=== PATIENT | female | born 2005 | race Caucasian/White ===

== ENCOUNTER 2023-11-25 08:37 | Emergency (ER) | payer OTHER ==
[~2023-11-25] VITALS: Ht 160 cm; Wt 65.8 kg
[2023-11-25] MEDS ORDERED: CEPH-570 PO (08:57)
[2023-11-25 09:02] VITALS: BP 119/66; TEMP 98.9; O2SAT 100
== END 2023-11-25 09:02 | disposition home or self-care (01) ==
LOC: ER 08:54
DX: N61.0 Mastitis without abscess (principal)

== ENCOUNTER 2024-01-19 16:25 | Emergency (ER) | payer OTHER ==
[~2024-01-19] VITALS: Ht 160 cm; Wt 82.1 kg
[~2024-01-19 16:25] MED LIST: CEPH-570 PO
[2024-01-19] MEDS ORDERED: ACETAMINOPHEN 325 MG TABLET ONE (18:30)
[2024-01-19] MEDS: ACETAMINOPHEN 325 MG TABLET PO ONE (18:35)
[2024-01-19 18:38] LABS: PREGNANCY TEST URINE QUAL NEGATIVE (NEGATIVE)
[2024-01-19 20:46] VITALS: BP 148/76; TEMP 98.5; O2SAT 100
== END 2024-01-19 20:46 | disposition home or self-care (01) ==
LOC: ER 16:27
DX: M54.2 Cervicalgia (principal); M25.552 Pain in left hip; M25.562 Pain in left knee; R51.9 Headache, unspecified; N61.0 Mastitis without abscess; M54.9 Dorsalgia, unspecified; M25.572 Pain in left ankle and joints of left foot; M25.512 Pain in left shoulder; R10.2 Pelvic and perineal pain; Z79.899 Other long term (current) drug therapy
CPT/HCPCS: 70450-TC; 72125-TC; 72128-TC; 72131-TC; 73030-TC; 73502; 73564-TC; 73610-TC; 84703-TC